=== PATIENT | male | born 1990 | race Caucasian/White ===

== ENCOUNTER 2016-05-12 10:49 | Emergency (ER) | payer OTHER ==
--- NOTE | ~2016-05-12 | CT4 ---
[facility] A Service of [facility] RADIOLOGY TEXT RESULTS PATIENT: NORA NGUYEN LOCATION: SED : [birth year] UNIT #: [id number] AGE: [address]: Shanna Dennis PUBLIC RECORDS OFFICER CARE MANAGEMENT ASSISTANT SEX: M ORDER DR: [id number] [address] [address] [id number] MR#: [id number] Acc #: [id number] NAME: NORA NGUYEN : 1990 SEX: M STUDY DATE/TIME: 05/12/2016 11:44 UNIT: SED ROOM: STUDY DESCRIPTION: CT Abd and Pelv Wo Cont Attending Physician: Shanna Dennis A.P.R.N. Ordering Physician: Shanna Dennis A.P.R.N. Primary Care Physician: Amadeo Toribio M.D. MEDICAL IMAGING REPORT This report is preliminary unless electronic signature is present. EXAM CT abdomen and pelvis without contrast. INDICATIONS Left flank pain and painful urination today. PROCEDURE Noncontrast CT of the abdomen and pelvis. COMPARISON 08/26/2013. FINDINGS Abdomen without contrast: The included lung bases are clear. The liver, spleen, adrenal glands, pancreas, gallbladder have an unremarkable unenhanced appearance. The bowel loops are nondilated. Moderate colonic stool burden. Appendix is normal. No radiodense urinary system calculus or hydronephrosis. Pelvis without contrast: No radiodense bladder calculus. No aggressive appearing bone lesion. IMPRESSION 1. No acute findings. No radiodense urinary system calculus or hydronephrosis. 2. The appendix is normal. Dictated by... Dominic Coker M.D. THIS IS AN ELECTRONICALLY VERIFIED REPORT [facility] A Service [facility] RADIOLOGY TEXT RESULTS PATIENT: NORA NGUYEN LOCATION: SED : 90 UNIT #: [id number] AGE: [address]: Shanna Dennis APRN CARE MANAGEMENT ASSISTANT SEX: M ORDER DR: Dominic Coker M.D. at 05/12/2016 4:52 PM EED/luis TD: 05/12/2016 13:46 JOB #: [id number] MEDICAL IMAGING REPORT
[~2016-05-12 10:49] MED LIST: NO MEDICATIONS
[2016-05-12 10:56] LABS: URINE SOURCE CLEAN CATCH
[2016-05-12 10:57] LABS: MICRO INDICATED? YES; URINE APPEARANCE SL CLOUDY; URINE BILIRUBIN NEG (NEG); URINE BLOOD 2+ (NEG); URINE COLOR YELLOW; URINE GLUCOSE NEG (NORM); URINE KETONE NEG (NEG); URINE LEUKOCYTE ESTERASE NEG (NEG); URINE NITRATE NEG (NEG); URINE PH 8.5 (5-8); URINE PROTEIN NEG (NEG); URINE SPECIFIC GRAVITY 1.015 (1.003-1.035); URINE UROBILINOGEN 0.2 MG/DL (NORM)
[2016-05-12 11:04] LABS: CULTURE INDICATED? NO; URINE BACTERIA NEG (NEG); URINE RBC 25-50 /[HPF] (0-2); URINE WBC 0-2 /[HPF] (0-5)
[2016-05-12 11:43] LABS: BASOPHIL% 0.4 % (0-2.5); EOSINOPHIL# 0.1 X10e3 (0-0.7); EOSINOPHIL% 1.6 % (0.0-7.0); HEMATOCRIT 47.9 % (38.0-50.0); HEMOGLOBIN 16.2 gm/dL (13.0-16.0); LYMPHOCYTE# 1.1 X10e3 (1.0-3.5); LYMPHOCYTE% 14.4 % (17.0-45.0); MEAN CELL VOLUME 87.8 FL (83-96); MEAN CORPUSCULAR HEMOGLOBIN 29.7 PG (28-34); MEAN CORPUSCULAR HGB CONC 33.8 g/dL (30-36); MEAN PLATELET VOLUME 8.1 FL (6.5-11.5); MONOCYTE# 0.5 X10e3 (0-1.0); MONOCYTE% 6.5 % (3.0-12.0); NEUTROPHIL% 77.1 % (40-75); PLATELET COUNT 171 X10e3 (140-420); RED BLOOD COUNT 5.46 X10e (3.90-5.60); RED CELL DISTRIBUTION WIDTH 12.7 % (11.0-15.5); WHITE BLOOD COUNT 7.8 X10e3 (4.0-10.5)
[2016-05-12 12:05] LABS: DIFF IND NO
[2016-05-12 12:19] LABS: ALBUMIN SERUM 4.3 g/dL (3.5-5.0); ALKALINE PHOSPHATASE 77 U/L (32-92); ALT (SGPT) 147 U/L (10-40); AST (SGOT) 63 U/L (10-42); BILIRUBIN,TOTAL 0.8 mg/dL (0.2-2.0); BLOOD UREA NITROGEN 15 mg/dL (9-23); CALCIUM SERUM 9.1 mg/dL (8.4-10.2); CARBON DIOXIDE 26 mmol/L (22-31); CHLORIDE 102 mmol/L (100-111); CREATININE SERUM 1.2 mg/dL (0.6-1.4); GLOM FILT RATE Estimated ABOVE60 mL/min (>60); GLUCOSE FASTING 105 mg/dL (70-110); POTASSIUM 4.2 mmol/L (3.5-5.1); PROTEIN TOTAL SERUM 7.4 g/dL (6.0-8.3); SODIUM 137 mmol/L (135-145)
[2016-05-12 13:32] LABS: AMPHETAMINE NEG (NEG); BARBITURATES NEG (NEG); BENZODIAZEPINES NEG (NEG); COCAINE NEG (NEG); MARIJUANA NEG (NEG); OPIATES NEG (NEG); TRICYCLIC ANTIDEPRESSANTS NEG (NEG); U METHADONE NEG (NEG)
== END 2016-05-12 13:20 | disposition home or self-care (01) ==
LOC: SED 10:49
PROVIDERS: Emergency Medicine; Nurse Practitioner
DX: R31.9 Hematuria, unspecified (principal); R10.9 Unspecified abdominal pain; Z86.19 Personal history of other infectious and parasitic diseases; R79.89 Other specified abnormal findings of blood chemistry; Z98.890 Other specified postprocedural states
CPT/HCPCS: 36415; 74176; 80053; 80307; 81003; 85025; 96374; 99284; J1885

== ENCOUNTER 2016-06-28 10:58 | Emergency (ER) | payer OTHER | END 2016-06-28 10:59 | disposition home or self-care (01) | LOC: SED 10:58 | DX: T40.1X1A Poisoning by heroin, accidental (unintentional), initial encounter (principal) | CPT/HCPCS: 99282 ==